=== PATIENT | female | born 1985 | race Two or more races ===

== ENCOUNTER 2023-10-20 00:12 | Emergency (ER) | payer MEDICAID ==
[~2023-10-20] VITALS: Ht 162.6 cm; Wt 117.9 kg
[2023-10-20 01:07] VITALS: BP 132/83; TEMP 98.4; O2SAT 99
== END 2023-10-20 01:08 | disposition home or self-care (01) ==
LOC: ER 00:35
DX: S01.01XA Laceration without foreign body of scalp, initial encounter (principal); J45.909 Unspecified asthma, uncomplicated; E11.9 Type 2 diabetes mellitus without complications; Y04.2XXA Assault by strike against or bumped into by another person, initial encounter; Y93.89 Activity, other specified; Y92.89 Other specified places as the place of occurrence of the external cause; Y99.8 Other external cause status